=== PATIENT | female | born 1990 | race Caucasian/White ===

== ENCOUNTER 2016-08-13 11:23 | Emergency (ER) | payer OTHER ==
[2016-08-13 12:44] LABS: BILIRUBIN NEGATIVE (NEGATIVE); BLOOD NEGATIVE Ery/uL (NEGATIVE); CLARITY CLEAR (CLEAR); COLOR YELLOW (YELLOW); GLUCOSE (U) NORMAL (NORMAL); KETONE (U) NEGATIVE (NEGATIVE); LEUKOCYTES NEGATIVE Leu/uL (NEGATIVE); NITRITE NEGATIVE (NEGATIVE); PROTEIN NEGATIVE (NEGATIVE)
[2016-08-13 12:52] LABS: AMPHETAMINES NEGATIVE (NEGATIVE); BENZODIAZEPINES NEGATIVE (NEGATIVE); COCAINE NEGATIVE (NEGATIVE); MARIJUANA (THC) POSITIVE (NEGATIVE)
[2016-08-13 12:53] LABS: BARBITURATES NEGATIVE (NEGATIVE); METHADONE NEGATIVE (NEGATIVE); TRICYCLIC ANTIDEPRESSANT NEGATIVE (NEGATIVE)
== END 2016-08-13 14:38 | disposition home or self-care (01) ==
LOC: FER 11:23
PROVIDERS: Nurse Practitioner
DX: J06.9 Acute upper respiratory infection, unspecified (principal); H92.02 Otalgia, left ear; F41.9 Anxiety disorder, unspecified; F17.210 Nicotine dependence, cigarettes, uncomplicated; Z88.0 Allergy status to penicillin
CPT/HCPCS: 71020; 80305; 81003

== ENCOUNTER 2020-12-03 19:33 | Emergency (ER) | payer OTHER ==
[~2020-12-03 19:33] MED LIST: ATARAX25 MG PO; BACTRIM DS TAB1 EACH PO; K-DUR20 MEQ PO; PROTONIX 40MG T40 MG PO; VOLTAREN **OUT75 MG PO; ZOFRAN4 MG PO
[2020-12-03 20:40] LABS: CREATININE 0.75 mg/dL (0.51-0.95); POTASSIUM 3.8 mmol/L (3.5-5.1)
[2020-12-03 20:42] LABS: BASOPHIL 0.6 % (0-2); HCT 36.7 % (37.0-47.0); LYMPHOCYTE 36.2 % (15-48); MCH 27.5 pg (25.0-31.0); MCHC 32.7 g/dL (32.0-36.0); MCV 84.2 fL (78.0-100.0); MONOCYTE 5.1 % (0-12); MPV 10.7 fL (6.0-9.5); NEUTROPHIL 55.8 % (41-80); NRBC 0; PLT 302 K/uL (150-400); RBC 4.36 M/uL (4.20-5.40); RDW 14.8 % (11.5-14.0)
[2020-12-03 20:47] LABS: WBC 7.1 K/uL (4.0-10.5)
[2020-12-03 20:57] LABS: AMPHETAMINES NEGATIVE (NEGATIVE); BARBITURATES NEGATIVE (NEGATIVE); ECSTASY (MDMA) NEGATIVE (NEGATIVE); MARIJUANA (THC) NEGATIVE (NEGATIVE); METHADONE NEGATIVE (NEGATIVE); OPIATES NEGATIVE (NEGATIVE); OXYCODONE NEGATIVE (NEGATIVE)
[2020-12-03 20:58] LABS: BILIRUBIN NEGATIVE (NEGATIVE); BLOOD NEGATIVE Ery/uL (NEGATIVE); CLARITY CLEAR (CLEAR); COLOR YELLOW (YELLOW); GLUCOSE (U) NORMAL (NORMAL); LEUKOCYTES NEGATIVE Leu/uL (NEGATIVE); NITRITE NEGATIVE (NEGATIVE); PROTEIN NEGATIVE (NEGATIVE); UROBILINOGEN 0.2 mg/dL (0.2-1.0)
[2020-12-03] MEDS ORDERED: ATARAX25 MG PO (22:18)
[2020-12-03] MEDS ORDERED: LAMICTAL100 MG PO (22:18)
[2020-12-03] MEDS ORDERED: CLONAZEPAM0.5 MG PO (22:18)
== END 2020-12-03 22:38 | disposition home or self-care (01) ==
LOC: FER 19:33
PROVIDERS: Emergency Medicine Emergency Medical Services
DX: S61.412A Laceration without foreign body of left hand, initial encounter (principal); R51.9 Headache, unspecified; M54.2 Cervicalgia; M79.662 Pain in left lower leg; M79.661 Pain in right lower leg; M25.532 Pain in left wrist; F17.210 Nicotine dependence, cigarettes, uncomplicated; Z88.0 Allergy status to penicillin; X58.XXXA Exposure to other specified factors, initial encounter; Y92.009 Unspecified place in unspecified non-institutional (private) residence as the place of occurrence of the external cause
CPT/HCPCS: 36415; 70450; 70490; 73120; 80048; 80305; 81003; 85025; G0480

== ENCOUNTER 2021-11-20 14:22 | Emergency (ER) | payer OTHER ==
[~2021-11-20 14:22] MED LIST changes: +CLONAZEPAM0.5 MG PO; +LAMICTAL100 MG PO
== END 2021-11-20 15:34 | disposition home or self-care (01) ==
LOC: FER 14:22
DX: F41.9 Anxiety disorder, unspecified (principal); Z88.0 Allergy status to penicillin
CPT/HCPCS: 93005

== ENCOUNTER 2021-12-30 19:26 | Emergency (ER) | payer OTHER ==
[2021-12-30 21:37] LABS: CORONAVIRUS 2019 SARS-COV-2 NEGATIVE (NEGATIVE); INFLUENZA A NAA NEGATIVE (NEGATIVE)
[2021-12-30] MEDS ORDERED: CYCLOBENZAPRINE10 MG PO (22:11)
== END 2021-12-30 22:19 | disposition home or self-care (01) ==
LOC: FER 19:26
PROVIDERS: Nurse Practitioner Family
DX: M62.830 Muscle spasm of back (principal); F41.9 Anxiety disorder, unspecified; Z88.0 Allergy status to penicillin; Z88.8 Allergy status to other drugs, medicaments and biological substances; Z20.822 Contact with and (suspected) exposure to COVID-19
CPT/HCPCS: 99283; U0002